=== PATIENT | male | born 2000 | race Caucasian/White ===

== ENCOUNTER 2024-06-26 11:48 | Outpatient (CLI) | payer OTHER, SELFPAY ==
[2024-06-26 12:22] LABS: Basophils % 0.3 % (0.1-2.0); Eosinophils # 0.1 Kmm3 (0.0-0.4); Eosinophils % 1.3 % (0.1-12.0); Hematocrit 50.2 % (42.0-52.0); Hemoglobin 17.1 g/dL (14.1-18.0); Lymphocytes # 2.2 K/mm3 (0.7-4.5); Lymphocytes % 29.7 % (10-50); Mean Corpuscular HGB Conc 34.1 g/dL (31.8-35.4); Mean Corpuscular Hemoglobin 29.3 pg (27.0-31.2); Monocytes # 0.7 K/mm3 (0.1-1.0); Monocytes % 9.5 % (1.7-9.3); Neutrophils # 4.5 K/mm3 (1.8-7.8); Neutrophils % 58.9 % (37.0-80.0); Nucleated Red Blood Cells # 0 10^3/uL; Nucleated Red Blood Cells % 0 %; Platelet Count 334 K/mm3 (142-424); Red Blood Count 5.84 M/mm3 (4.60-6.20); Red Cell Distribution Width 12.5 % (11.5-17.5); Red Cell Distribution Width-SD 38.9 fL; White Blood Count 7.6 K/mm3 (4.8-10.8)
[2024-06-26 12:51] LABS: Albumin Level 4.5 g/dl (3.5-5.0); Chloride 107 mmol/L (98-107); Potassium 4.8 mmoL/L (3.5-5.1); Sodium 141 mmol/L (136-145)
[2024-06-26 12:54] LABS: Alanine Aminotransferase 23 U/L (12-78); Alkaline Phosphatase 69 U/L (38-126); Anion Gap 11.8 mEq/L (5-15); Aspartate Amino Transferase 30 U/L (17-59); Bilirubin,Direct 0.1 mg/dl (0.0-0.4); Bilirubin,Indirect 0.4 mg/dL (0.0-0.9); Bilirubin,Total 0.5 mg/dl (0.2-1.3); Bilirubin,Unconjugated 0.4 mg/dL (0.0-1.1); Blood Urea Nitrogen 14 mg/dl (9-20); Calcium 9.6 mg/dl (8.4-10.2); Carbon Dioxide 27 mmol/L (22.0-30.0); Cholesterol 209 mg/dl (140-200); Estimated Glomerular Filt Rate 117 ml/min (>60); GFR (African American) 141 ML/MIN (>60); Glucose 109 mg/dl (74-100); Magnesium 2.1 mg/dl (1.6-2.3); Total Protein,Serum 7.3 g/dl (6.3-8.2); Triglycerides 208 mg/dl (30-150); VLDL Cholesterol 42 mg/dL (0-40)
[2024-06-26 12:55] LABS: Chol/HDL Ratio 5.6 (1-3.5); HDL Cholesterol 37 mg/dl (40-60)
[2024-06-26 13:06] LABS: Direct LDL Cholesterol 145.75 mg/dL (100-129)
[2024-06-26 13:25] LABS: Thyroid Stimulating Hormone 1.31 uIU/mL (0.465-4.68)
[2024-06-26 14:19] LABS: Free T4 (Free Thyroxine) 1.11 ng/dl (0.78-2.19)
== END 2024-06-26 23:59 | disposition home or self-care (01) ==
LOC: LAB 11:49
PROVIDERS: PCP Physician Assistant Medical; Visit Provider Internal Medicine
DX: R00.2 Palpitations (principal); R55 Syncope and collapse; R06.09 Other forms of dyspnea; R07.89 Other chest pain
CPT/HCPCS: 36415; 80048; 80061; 80076; 83735; 84439; 84443; 85025; 93270

== ENCOUNTER 2024-07-03 21:12 | Observation (INO) | payer OTHER, SELFPAY ==
--- NOTE | 2024-07-03 21:13 | ECG_ITS ---
APPROVED REPORT Exam: Resting ECG HR:82 bpm ECG Measurements Heart Rate 82 AXES LA 180 P 44 QRSd 108 QRS -7 QT 340 T 73 QTc 379 Conclusion SINUS RHYTHM NONSPECIFIC T-WAVE ABNORMALITY Electronically signed by : Chad Kendall, 07/04/2024 01:01:28
[2024-07-03 21:15] VITALS: BP 142/80; PULSE 79; PULSE 82; RESP 19; TEMP 36.7; O2SAT 98; BMI 40.4
--- NOTE | 2024-07-03 21:15 | XR_ITS ---
PROCEDURE INFORMATION: Exam: XR Chest Exam date and time: 07/03/2024 9:16 PM Age: 24 years old Clinical indication: Pain; Chest pressure; Additional info: Chest pain TECHNIQUE: Imaging protocol: Radiologic exam of the chest. Views: 2 views. COMPARISON: No relevant prior studies available. FINDINGS: Lungs: Unremarkable. No consolidation. Pleural spaces: Unremarkable. No pleural effusion. No pneumothorax. Heart/Mediastinum: Unremarkable. No cardiomegaly. Bones/joints: Unremarkable. IMPRESSION: No acute findings.
--- NOTE | 2024-07-03 21:15 | ED_ITS ---
Discharge Plan Disposition Patient Disposition: Admitted Condition: Good Clinical Impressions Clinical Impression: Chest pain Qualifiers: Chest pain type: other chest pain Qualified Code(s): R07.89 - Other chest pain Discharge ED Provider: Chad Kendall HPI <MIKE Sorenson - Last Filed: 07/03/24 22:00> General Chief Complaint: Chest Pain Stated Complaint: chest pain Time Seen by Provider: 07/03/24 21:14 History of Present Illness HPI narrative: Patient presents for evaluation of chest pain. Patient has had 3 weeks of intermittent chest pain. Initially started with some fluttering in his chest and he thought he was going to pass out. He was referred to cardiology and saw him last Wednesday. He had initial workup scheduled including echo and coronary artery CT however that has not yet been accomplished. He has had a Holter monitor put on. Patient reports that today he began having left arm pain and it has been ongoing off and on all day. He denies any trauma or injury. He contacted cardiology who advised him to come to the emergency department. Patient denies chest pain shortness of breath fever chills hemoptysis hematochezia melena nausea vomiting diarrhea. The chest pain has occurred both at rest and with activity. There is no aggravating or relieving factors Related Data Home Medications ?Medication ?Instructions ?Recorded ?Confirmed metoprolol succinate 50 mg 50 mg PO DIRECTED 06/26/24 07/03/24 tablet,extended release 24 hr omeprazole 20 mg capsule,delayed 20 mg PO DAILY 06/26/24 07/03/24 release Allergies Allergy/AdvReac Type Severity Reaction Status Date / Time No Known Allergies Allergy Verified 06/26/24 11:04 [facility] <MIKE Sorenson - Last Filed: 07/03/24 22:00> [facility] Disclaimer: The information contained in this section may have been updated after the patient was seen, as this information can be updated by other users. Medical History (Updated 07/03/24 @ 21:58 by MIKE Sorenson) Abnormal electrocardiogram [ECG] [EKG] HTN (hypertension) Family History (Updated 06/26/24 @ 11:10 by Katherine Sanchez) Grandfather Cancer Father Diabetes Heart attack Hypertension Mother Diabetes Hypertension Grandmother Hypertension Social History (Updated 06/26/24 @ 11:09 by Katherine Garcia Smoking Status: Never smoker alcohol intake: never substance use type: denies use current occupational status: employed Travel in the last 8 weeks?: Inside the [place] Have you lived/traveled outside US in past 30 days?: No Contact w/someone who lives/traveled outside US past 30 days?: No Exposure to someone with infectious disease in past 14 days?: No Do you have a fever (greater than 100.4 F or 38 C)?: No Have you tested positive for COVID-19?: No Exposed to someone with COVID-19 in past 14 days?: No Do you have a sore throat?: No Do you have a cough?: No Do you have any weakness?: No Do you have any diarrhea?: No Are you experiencing any unusual bleeding?: No Do you have any muscle aches/pain?: No Do you have any abdominal pain?: No Are you experiencing loss of taste or smell?: No <MIKE Sorenson - Last Filed: 07/03/24 22:00> ROS Obtained: Yes Systems reviewed as appropriate & no additional complaints except as documented Physical Exam <MIKE Sorenson - Last Filed: 07/03/24 22:00> General General appearance: alert and in no apparent distress Respiratory Respiratory exam: Present normal lung sounds bilaterally Cardiovascular Cardiovascular exam: Present regular rate Neurological Exam Neurological exam: Present alert and oriented X3 HEART Score <MIKE Sorenson - Last Filed: 07/03/24 22:00> HEART Score HEART Score assessment performed?: Yes History (anamnesis): Slightly suspicious ECG: Non-specific disturbance Age: <45 years Risk factors: 3 or more risk factors Troponin: </= normal limit HEART Score: 3 <Chad Kendall MD - Last Filed: 07/04/24 00:57> HEART Score HEART Score: 3 Critical Care <MIKE Sorenson - Last Filed: 07/03/24 22:00> Critical Care Time Critical Care Time: No Medical Decision Making <MIKE Sorenson - Last Filed: 07/03/24 22:00> Medical Records Medical records reviewed: Yes I reviewed the patient's medical records. Randal Inquiry Pt receiving controlled substance: No Vital Signs Vital Signs: 07/03/24 21:15 07/03/24 21:15 07/03/24 22:11 Temperature 98.1 F Temperature Source Oral Pulse Rate 82 Pulse Rate [Right] 79 Respiratory Rate 19 Blood Pressure Blood Pressure [Right Arm] 142/80 H Blood Pressure Mean [Right Arm] 100 Blood Pressure Position [Right Arm] Sitting 02 Sat by Pulse Oximetry 98 Oxygen Delivery Method Room Air Room Air 07/03/24 22:13 Temperature 98.1 F Temperature Source Pulse Rate 80 Pulse Rate [Right] Respiratory Rate 20 Blood Pressure 146/85 H Blood Pressure [Right Arm] Blood Pressure Mean [Right Arm] Blood Pressure Position [Right Arm] 02 Sat by Pulse Oximetry Oxygen Delivery Method Room Air Lab Data Lab results reviewed: Yes I reviewed the patient's lab results. Labs: Lab Results 07/03/24 21:17: WBC 10.4, RBC 5.64, Hgb 16.5, Hct 48.4, MCV 85.8, MCH 29.3, MCHC 34.1, RDW 12.7, Plt Count 341, MPV 8.7, Neut % (Auto) 52.6, Lymph % (Auto) 34.7, [place] % (Auto) 10.8 H, Eos % (Auto) 1.4, Baso % (Auto) 0.2, Neut # (Auto) 5.4, Lymph # (Auto) 3.6, [place] # (Auto) 1.1 H, Eos # (Auto) 0.2, Baso # (Auto) 0.0, PT 10.6, INR 0.94, Sodium 142, Potassium 3.9, Chloride 106, Carbon Dioxide 28, Anion Gap 11.9, BUN 17, Creatinine 1.00, Estimated Creat Clear 251, Estimated GFR 90, Est GFR ( Amer) 109, Glucose 98, Calcium 9.2, Total Bilirubin 0.5, AST 30, ALT 25, Alkaline Phosphatase 71, Troponin I < 0.01, C-Reactive Protein 2.3, NT-Pro-B Natriuret Pep < 20.0, Total Protein 7.5, Albumin 4.5, Globulin 3.0, Albumin/Globulin Ratio 1.5, Procalcitonin 0.049 07/03/24 21:17 07/03/24 21:17 Response Orders (Tests/Meds): ED MEDICATIONS Generic Name Dose Route Start Last Admin Trade Name Freq PRN Reason Stop Dose Admin Acetaminophen 650 mg 07/03/24 22:02 Acetaminophen 325mg Tab PO 08/02/24 22:01 Q4HP PRN Fever or Mild Pain (1-3) Enoxaparin Sodium 40 mg 07/04/24 09:00 Enoxaparin 40mg/0.4ml Syringe SUBCUT 08/03/24 08:59 DAILY J LUIS Ondansetron HCl 4 mg 07/03/24 22:02 Ondansetron 4mg/2ml Vial IV 08/02/24 22:01 Q8HP PRN Nausea Discontinued Medications Generic Name Dose Route Start Last Admin Trade Name Freq PRN Reason Stop Dose Admin Acetaminophen 1,000 mg 07/03/24 21:15 07/03/24 21:22 Acetaminophen 500mg Tab PO 07/03/24 21:16 1,000 mg ONCE ONE Administration Ketorolac Tromethamine 15 mg 07/03/24 21:15 07/03/24 21:21 Ketorolac 30mg/Ml Vial IV 07/03/24 21:16 15 mg ONCE ONE Administration Ondansetron HCl 4 mg 07/03/24 21:15 07/03/24 21:21 Ondansetron 4mg/2ml Vial IV 07/03/24 21:16 4 mg ONCE ONE Administration [facility] Narrative Medical Decision Narrative: In summary patient is a 24-year-old male who presents to the emergency department for evaluation of chest pain and left arm pain intermittently for 3 weeks. Patient is hemodynamically stable upon arrival, afebrile with normal sinus rhythm on bedside monitor. Afebrile. Physical exam is remarkable for no reproducible chest pain or arm pain on palpation. Patient has full range of motion of his upper extremity. Presents clinical bilateral to the bases that adventitious sounds. Cardiovascular S1-S2 regular rate rhythm without murmurs gallops rubs or thrills. Abdomen soft nontender no rebound or guarding or rigidity.. Differential diagnosis includes ACS versus PE versus noncardiac chest pain versus unstable angina versus arthralgia etc. Initial workup will be conducted with hematologic labs twelve-lead EKG plain film chest x-ray. Initial interventions include Tylenol and Toradol Zofran. Initial workup interpreted by me and his hematologic labs are nonactionable including a undetectable troponin and BNP, mild for interpretation of his plain film chest x-ray shows no acute processes. I then had an interactive discussion with Dr. Larson of cardiology about patient presentation NIELSEN and management and he would like to admit the patient for further inpatient workup given his unstable symptoms. Thus I had indirect discussion with hospital medicine about patient presentation NIELSEN and patient management and he will be admitted for further evaluation and care. <Chad Kendall MD - Last Filed: 07/04/24 00:57> Vital Signs Vital Signs: 07/03/24 21:15 07/03/24 21:15 07/03/24 22:11 Temperature 98.1 F Temperature Source Oral Pulse Rate 82 Pulse Rate [Right] 79 Respiratory Rate 19 Blood Pressure Blood Pressure [Right Arm] 142/80 H Blood Pressure Mean [Right Arm] 100 Blood Pressure Position [Right Arm] Sitting 02 Sat by Pulse Oximetry 98 Oxygen Delivery Method Room Air Room Air 07/03/24 22:13 Temperature 98.1 F Temperature Source Pulse Rate 80 Pulse Rate [Right] Respiratory Rate 20 Blood Pressure 146/85 H Blood Pressure [Right Arm] Blood Pressure Mean [Right Arm] Blood Pressure Position [Right Arm] 02 Sat by Pulse Oximetry Oxygen Delivery Method Room Air Lab Data Labs: Lab Results 07/03/24 21:17: WBC 10.4, RBC 5.64, Hgb 16.5, Hct 48.4, MCV 85.8, MCH 29.3, MCHC 34.1, RDW 12.7, Plt Count 341, MPV 8.7, Neut % (Auto) 52.6, Lymph % (Auto) 34.7, [place] % (Auto) 10.8 H, Eos % (Auto) 1.4, Baso % (Auto) 0.2, Neut # (Auto) 5.4, Lymph # (Auto) 3.6, [place] # (Auto) 1.1 H, Eos # (Auto) 0.2, Baso # (Auto) 0.0, PT 10.6, INR 0.94, Sodium 142, Potassium 3.9, Chloride 106, Carbon Dioxide 28, Anion Gap 11.9, BUN 17, Creatinine 1.00, Estimated Creat Clear 251, Estimated GFR 90, Est GFR ( Amer) 109, Glucose 98, Calcium 9.2, Total Bilirubin 0.5, AST 30, ALT 25, Alkaline Phosphatase 71, Troponin I < 0.01, C-Reactive Protein 2.3, NT-Pro-B Natriuret Pep < 20.0, Total Protein 7.5, Albumin 4.5, Globulin 3.0, Albumin/Globulin Ratio 1.5, Procalcitonin 0.049 Response Orders (Tests/Meds): ED MEDICATIONS Generic Name Dose Route Start Last Admin Trade Name Freq PRN Reason Stop Dose Admin Acetaminophen 650 mg 07/03/24 22:02 Acetaminophen 325mg Tab PO 08/02/24 22:01 Q4HP PRN Fever or Mild Pain (1-3) Enoxaparin Sodium 40 mg 07/04/24 09:00 Enoxaparin 40mg/0.4ml Syringe SUBCUT 08/03/24 08:59 DAILY J LUIS Ondansetron HCl 4 mg 07/03/24 22:02 Ondansetron 4mg/2ml Vial IV 08/02/24 22:01 Q8HP PRN Nausea Discontinued Medications Generic Name Dose Route Start Last Admin Trade Name Freq PRN Reason Stop Dose Admin Acetaminophen 1,000 mg 07/03/24 21:15 07/03/24 21:22 Acetaminophen 500mg Tab PO 07/03/24 21:16 1,000 mg ONCE ONE Administration Ketorolac Tromethamine 15 mg 07/03/24 21:15 07/03/24 21:21 Ketorolac 30mg/Ml Vial IV 07/03/24 21:16 15 mg ONCE ONE Administration Ondansetron HCl 4 mg 07/03/24 21:15 07/03/24 21:21 Ondansetron 4mg/2ml Vial IV 07/03/24 21:16 4 mg ONCE ONE Administration ECG Data Tracing #1: Attestation: I reviewed this ECG and interpreted as documented below: ECG Narrative: Normal sinus rhythm at a rate of 82, QTc 379, normal axis, no STEMI MDM Narrative Medical Decision Narrative: In summary patient is a 24-year-old male who presents to the emergency department for evaluation of chest pain and left arm pain intermittently for 3 weeks. Patient is hemodynamically stable upon arrival, afebrile with normal sinus rhythm on bedside monitor. Afebrile. Physical exam is remarkable for no reproducible chest pain or arm pain on palpation. Patient has full range of motion of his upper extremity. Presents clinical bilateral to the bases that adventitious sounds. Cardiovascular S1-S2 regular rate rhythm without murmurs gallops rubs or thrills. Abdomen soft nontender no rebound or guarding or rigidity.. Differential diagnosis includes ACS versus PE versus noncardiac chest pain versus unstable angina versus arthralgia etc. Initial workup will be conducted with hematologic labs twelve-lead EKG plain film chest x-ray. Initial interventions include Tylenol and Toradol Zofran. Initial workup interpreted by me and his hematologic labs are nonactionable including a undetectable troponin and BNP, mild for interpretation of his plain film chest x-ray shows no acute processes. I then had an interactive discussion with Dr. Larson of cardiology about patient presentation NIELSEN and management and he would like to admit the patient for further inpatient workup given his unstable symptoms. Thus I had indirect discussion with hospital medicine about patient presentation NIELSEN and patient management and he will be admitted for further evaluation and care. HECTOR attestation I was consulted by the HECTOR, and we discussed the complexity of problems being addressed. I approved the treatment and management plan for this patient's care in the emergency department, thus performing a substantial portion of the medical decision making. I was present at bedside on patient arrival and independently interpret his EKG as described above. Chad Kendall MD
[2024-07-03] MEDS: ONDANSETRON 4MG/2ML VIAL 4 MG IV (21:21)
[2024-07-03] MEDS: KETOROLAC 30MG/ML VIAL 15 MG IV (21:21)
[2024-07-03] MEDS: ACETAMINOPHEN 500MG TAB 1000 MG PO (21:22)
[2024-07-03 21:34] LABS: Alanine Aminotransferase 25 U/L (12-78); Albumin Level 4.5 g/dl (3.5-5.0); Albumin/Globulin Ratio 1.5 (1.1-1.8); Alkaline Phosphatase 71 U/L (38-126); Anion Gap 11.9 mEq/L (5-15); Aspartate Amino Transferase 30 U/L (17-59); Bilirubin,Total 0.5 mg/dl (0.2-1.3); Blood Urea Nitrogen 17 mg/dl (9-20); Calcium 9.2 mg/dl (8.4-10.2); Carbon Dioxide 28 mmol/L (22.0-30.0); Chloride 106 mmol/L (98-107); Creatinine Clearance Estimated 251 mL/min (50-200); Estimated Glomerular Filt Rate 90 ml/min (>60); GFR (African American) 109 ML/MIN (>60); Glucose 98 mg/dl (74-100); Potassium 3.9 mmoL/L (3.5-5.1); Sodium 142 mmol/L (136-145); Total Protein,Serum 7.5 g/dl (6.3-8.2)
[2024-07-03 21:39] LABS: C-Reactive Protein 2.3 mg/L (0-4)
[2024-07-03 21:40] LABS: Basophils % 0.2 % (0.1-2.0); Eosinophils # 0.2 Kmm3 (0.0-0.4); Eosinophils % 1.4 % (0.1-12.0); Hematocrit 48.4 % (42.0-52.0); Hemoglobin 16.5 g/dL (14.1-18.0); Lymphocytes # 3.6 K/mm3 (0.7-4.5); Lymphocytes % 34.7 % (10-50); Mean Corpuscular HGB Conc 34.1 g/dL (31.8-35.4); Mean Corpuscular Hemoglobin 29.3 pg (27.0-31.2); Mean Corpuscular Volume 85.8 fl (80-94); Mean Platelet Volume 8.7 fl (7.4-10.4); Monocytes # 1.1 K/mm3 (0.1-1.0); Monocytes % 10.8 % (1.7-9.3); Neutrophils # 5.4 K/mm3 (1.8-7.8); Neutrophils % 52.6 % (37.0-80.0); Nucleated Red Blood Cells # 0 10^3/uL; Nucleated Red Blood Cells % 0 %; Platelet Count 341 K/mm3 (142-424); Red Blood Count 5.64 M/mm3 (4.60-6.20); Red Cell Distribution Width 12.7 % (11.5-17.5); Red Cell Distribution Width-SD 39.5 fL; White Blood Count 10.4 K/mm3 (4.8-10.8)
[2024-07-03 21:47] LABS: INR 0.94 (0.9-1.1); Prothrombin Time 10.6 seconds (10.1-12.5)
[2024-07-03 21:48] LABS: NT Pro Brain Natriuretic Pep. < 20.0 pg/mL (0-125); Troponin I < 0.01 ng/ml (0.00-0.034)
[2024-07-03 21:52] LABS: Procalcitonin 0.049 ng/mL (0.0-2.0)
--- NOTE | 2024-07-03 22:09 | P.HP_ITS ---
History of Present Illness *Admission Date: 07/04/24 *Reason for visit:: Chest pain *History of present illness: Samuel Solano is a 24-year-old male with a medical history significant for hypertension, hyperlipidemia, GERD, class III obesity who presents with intermittent chest pains. He states these episodes began about 3 weeks ago, describes them as midsternal pressure. He states he has not felt radiation in the past, but now has had an episode where it has radiated to left arm. He also states that he felt fluttering in his right neck during the initial episode 3 weeks ago. Denies associated shortness of breath, palpitations, dizziness. States its both with exertion and at rest, denies it is worse after eating. Recently evaluated by Dr. Larson in the clinic, recommended CCTA, ECHO, and sleep study which are being scheduled. He was also placed on a 2-week event monitor. He was also started on omeprazole 3 weeks ago by PCP, has been adherent daily to it on empty stomach and states it has not improved symptoms. Chest pain resolved before arrival to the ED. Patient drove himself. Workup in the ED relatively unremarkable, troponins and EKG unremarkable. LDL 145. D- dimer 0.67. ED provider reached out to Dr. Larson who recommended admission for further evaluation and management. Case discussed with ED provider and decision was made to admit patient for chest pain workup. [facility] Disclaimer: The information contained in this section may have been updated after the patient was seen, as this information can be updated by other users. Medical History (Updated 07/04/24 @ 02:14 by Kaleb Clark MD) Abnormal electrocardiogram [ECG] [EKG] HTN (hypertension) Family History (Updated 06/26/24 @ 11:10 by Katherine Sanchez) Grandfather Cancer Father Diabetes Heart attack Hypertension Mother Diabetes Hypertension Grandmother Hypertension Social History (Updated 06/26/24 @ 11:09 by Katherine Sanchez) Smoking Status: Never smoker alcohol intake: never substance use type: denies use current occupational status: employed Travel in the last 8 weeks?: Inside the [place] Have you lived/traveled outside US in past 30 days?: No Contact w/someone who lives/traveled outside US past 30 days?: No Exposure to someone with infectious disease in past 14 days?: No Do you have a fever (greater than 100.4 F or 38 C)?: No Have you tested positive for COVID-19?: No Exposed to someone with COVID-19 in past 14 days?: No Do you have a sore throat?: No Do you have a cough?: No Do you have any weakness?: No Do you have any diarrhea?: No Are you experiencing any unusual bleeding?: No Do you have any muscle aches/pain?: No Do you have any abdominal pain?: No Are you experiencing loss of taste or smell?: No Meds Home Medications and Allergies Home Medications ?Medication ?Instructions ?Recorded ?Confirmed ?Type metoprolol succinate 50 mg 50 mg PO DIRECTED 06/26/24 07/03/24 History tablet,extended release 24 hr omeprazole 20 mg capsule,delayed 20 mg PO DAILY 06/26/24 07/03/24 History release New Prescriptions to Start Prescriptions: Allergies Allergy/AdvReac Type Severity Reaction Status Date / Time No Known Allergies Allergy Verified 06/26/24 11:04 Exam Data for Last 24 hours Vital signs and Labs for Last 24 Hours: Temp Pulse Resp BP Pulse Ox O2 Del Method 98.1 F 79 19 142/80 H 98 Room Air 07/03/24 21:15 07/03/24 21:15 07/03/24 21:15 07/03/24 21:15 07/03/24 21:15 07/03/24 21:15 Laboratory Results - last 24 hr 07/03/24 21:17: WBC 10.4, RBC 5.64, Hgb 16.5, Hct 48.4, MCV 85.8, MCH 29.3, MCHC 34.1, RDW 12.7, Plt Count 341, MPV 8.7, Neut % (Auto) 52.6, Lymph % (Auto) 34.7, [place] % (Auto) 10.8 H, Eos % (Auto) 1.4, Baso % (Auto) 0.2, Neut # (Auto) 5.4, Lymph # (Auto) 3.6, [place] # (Auto) 1.1 H, Eos # (Auto) 0.2, Baso # (Auto) 0.0, PT 10.6, INR 0.94, Sodium 142, Potassium 3.9, Chloride 106, Carbon Dioxide 28, Anion Gap 11.9, BUN 17, Creatinine 1.00, Estimated Creat Clear 251, Estimated GFR 90, Est GFR ( Amer) 109, Glucose 98, Calcium 9.2, Total Bilirubin 0.5, AST 30, ALT 25, Alkaline Phosphatase 71, Troponin I < 0.01, C- Reactive Protein 2.3, NT-Pro-B Natriuret Pep < 20.0, Total Protein 7.5, Albumin 4.5, Globulin 3.0, Albumin/Globulin Ratio 1.5, Procalcitonin 0.049 I & O for Last 24 hours: Intake & Output 06/30/24 07/01/24 07/02/24 07/03/24 23:59 23:59 23:59 23:59 Weight 158.757 kg Constitutional Constitutional: no acute distress and obese *Routine HEENT Exam Head: Present normocephalic Eye: Present EOMI and PERRL ENT: Present mucous membranes moist *Routine Neck Exam Neck: Present supple; Absent lymphadenopathy *Routine Respiratory Exam Respiratory: Present CTA bilaterally *Routine Cardiovascular Exam Cardiovascular: Present RRR *Routine Abdominal Exam Abdominal: Present soft and normoactive bowel sounds; Absent tenderness *Routine Rectal Exam Rectal:: deferred *Routine Genitalia Exam Genitalia:: deferred *Routine Extremities Exam Extremities: Absent cyanosis, clubbing or edema *Routine Skin Exam Skin: Present warm; Absent rash *Routine Neurological Exam Neurological: Present alert and oriented X3 Assessment and Plan *Assessment and plan (1) Chest pain: Status: Acute Qualifiers: Chest pain type: other chest pain Qualified Code(s): R07.89 - Other chest pain Category: Medical Code(s): R07.9 - Chest pain, unspecified (2) GERD (gastroesophageal reflux disease): Status: Acute Category: Medical Code(s): K21.9 - Gastro-esophageal reflux disease without esophagitis (3) Hyperlipidemia: Status: Acute Category: Medical Code(s): E78.5 - Hyperlipidemia, unspecified (4) HTN (hypertension): Status: Acute Category: Medical Code(s): I10 - Essential (primary) hypertension (5) Obesity: Status: Acute Category: Medical Code(s): E66.9 - Obesity, unspecified Plan Samuel Solano is a 24-year-old male with a medical history significant for hypertension, hyperlipidemia, GERD, class III obesity who presents with intermittent chest pains. He states these episodes began about 3 weeks ago, describes them as midsternal pressure. He states he has not felt radiation in the past, but now has had an episode where it has radiated to left arm. He also states that he felt fluttering in his right neck during the initial episode 3 weeks ago. Denies associated shortness of breath, palpitations, dizziness. States its both with exertion and at rest, denies it is worse after eating. Recently evaluated by Dr. Larson in the clinic, recommended CCTA, ECHO, and sleep study which are being scheduled. He was also placed on a 2-week event monitor. He was also started on omeprazole 3 weeks ago by PCP, has been adherent daily to it on empty stomach and states it has not improved symptoms. Chest pain resolved before arrival to the ED. Patient drove himself. Workup in the ED relatively unremarkable, troponins and EKG unremarkable. LDL 145. D- dimer 0.67. ED provider reached out to Dr. Larson who recommended admission for further evaluation and management. Case discussed with ED provider and decision was made to admit patient for chest pain workup. #Chest pain #Hyperlipidemia #Hypertension #GERD ? Presents with 3 weeks of intermittent midsternal chest pain, now radiating to left arm. Not reproducible to palpation, not worse with eating. ? Troponins, EKG unremarkable. D-dimer elevated, but we will forego CTA chest for CCTA given low suspicion for pulmonary embolism. On room air vital signs stable. ? Patient does have risk factors for coronary disease, LDL 145 with a history of hypertension and obesity. Non-smoker or drinker. ? CXR without acute findings. ? Follow-up CCTA in the morning. ? Follow-up ECHO. ? Follow-up A1c. TSH, CRP normal. ? Follow-up respiratory panel for possible myopericarditis. ? Follow-up UDS. Zofran has been given, UDS can be false positive for barbiturates. ? Cardiology consulted, pending further recommendations. ? Continue home metoprolol succinate 50 mg, PPI. ? Statin not indicated per USPSTF guidelines but can be considered. #Class III obesity ? Complicates all aspects of care. Full code DVT prophylaxis: Lovenox 40 mg twice daily
[2024-07-03 22:13] VITALS: BP 146/85; PULSE 80; RESP 20; TEMP 36.7; O2SAT 95
[2024-07-03 22:19] LABS: D-Dimer 0.67 ug/mL (0.0-0.5)
[2024-07-03 22:30] LABS: HIV Combo NEGATIVE (Negative)
[2024-07-03 22:38] LABS: Hepatitis C Ab Qual. W/ RFX NEGATIVE (Negative)
[2024-07-03 22:52] VITALS: BP 133/78; PULSE 96; RESP 16; TEMP 36.8; O2SAT 97; BMI 40.7
[2024-07-04] VITALS: BP 140/83; PULSE 70; PULSE 77; RESP 16; TEMP 36.7; O2SAT 97
--- NOTE | 2024-07-04 01:06 | CA_ITS ---
APPROVED REPORT EXAM: Comprehensive 2D, Doppler, and color-flow Echocardiogram Head Refrigeration Engineer: Alexandra Purvis, LAURIE, RVS Ht: 6 ft 5 in Wt: 351lbs BSA: 2.84 BP: 142/80 mmHg Indications: CP, Palpitations, GERD, HTN, Obesity 2D Dimensions IVSd 1.18 cm M: 0.6-1.2 LVEF (Visual) 58.90 % PWd 1.45 cm M: 0.6 - 1.2 LA Volume 55.10 mL LVDd 5.25 cm M: 4.2 - 5.9 LA Volume Index [id number] mL/m2 (M/F) 16-34 LVDs 3.70 cm M: 2.5 - 4.0 Left Atrium 3.39 cm M: 3.0 - 4.0 M-Mode Dimensions RVDd 2.83 cm (0.9-2.6) LA Diam 3.91 cm (1.9-4.0) LVDd 6.39 cm (3.5-5.7) LVDs 3.84 cm (3.5-5.7) IVSd 1.15 cm (0.6-1.1) PWd 1.36 cm (0.6-1.1) EF (Teich) 69.40% EPSs 0.39 cm FS 39.90% EDV (Teich) 207.80 mL TAPSE 1.60 (<1.7) ESV (Teich) 63.50 mL LV Diastology E Decel Time 153 (160-240 msec) E/A Ratio 1.22 MED A' 9.70 cm/s LAT A' 4.70 cm/s Aortic Valve AoV Peak Artemio. 151.0 (50-130 cm/s) AO Peak GR. 9.20 mmHg AO Mean GR. 4.50 (<5 mmHg) AO VTI 28.5 (18-25 cm) LAWRENCE (VTI) 2.56 (2.5-4.5 cm2) Mitral Valve MV A Velocity 77.0 (40-130 cm/s) E/A Ratio 1.22 MV Mean Gr. 2.00 (<2mmHg) Pulmonary Valve PV Peak Velocity 108.0 (50-150 cm/s) Left Ventricle The left ventricle is normal size. The left ventricular systolic function is normal. The left ventricular ejection fraction is within the normal range. There is normal left ventricular wall thickness. There is normal LV segmental wall motion. The left ventricular diastolic function is normal. LVEF is 55%. Right Ventricle The right ventricle is normal size. The right ventricular systolic function is normal. Atria The left atrium size is normal. The right atrium size is normal. There is no Doppler evidence of interatrial shunt. Aortic Valve The aortic valve opens well. There is no aortic valvular stenosis. No aortic regurgitation is present. Mitral Valve The mitral valve is normal in structure. No evidence of mitral valve stenosis. Trace mitral regurgitation. Tricuspid Valve Tricuspid valve is grossly normal in structure and function. Trace tricuspid regurgitation. There is insufficient TR jet to estimate RVSP. Pulmonic Valve The pulmonary valve is normal in structure. Trace pulmonic regurgitation. Great Vessels The aortic root is normal in size. IVC is normal in size and collapses >50% with inspiration. Pericardium There is no pericardial effusion. Other Information Study Quality: Adequate Conclusion Normal biventricular systolic function. No significant valvular stenosis or regurgitation. Electronically signed by : Monet Moulton MD 07/04/2024 11:36:26
[2024-07-04 01:36] LABS: Troponin I < 0.01 ng/ml (0.00-0.034)
[2024-07-04 02:59] LABS: Adenovirus,PCR Not Detected (NotDetected); Bordetella Pertussis Not Detected (NotDetected); Chlamydophila Pneumoniae, PCR Not Detected (NotDetected); Coronavirus 19, PCR Not Detected (NotDetected); Coronavirus 229E Not Detected (NotDetected); Coronavirus NL63 Not Detected (NotDetected); Coronavirus OC43 Not Detected (NotDetected); Coronovirus HKU1,PCR Not Detected (NotDetected); Human Metapneumovirus Not Detected (NotDetected); Influenza A, PCR Not Detected (NotDetected); Influenza AH1, 2009 Not Detected (NotDetected); Influenza AH1, PCR Not Detected (NotDetected); Influenza AH3,PCR Not Detected (NotDetected); Influenza B, PCR Not Detected (NotDetected); Microscopic, Urine URINE MICROSCOPIC (MICROSCOPIC); Mycoplasma Pneumoniae, PCR Not Detected (NotDetected); Parainfluenza 1, PCR Not Detected (NotDetected); Parainfluenza 2, PCR Not Detected (NotDetected); Parainfluenza 3, PCR Not Detected (NotDetected); Parainfluenza 4, PCR Not Detected (NotDetected); Respiratory Syncytial Virus Not Detected (NotDetected); Rhinovirus/Enterovirus Not Detected (NotDetected)
[2024-07-04 03:14] LABS: Appearance,Urine CLEAR (Clear); Bilirubin,Urine Negative (Negative); Blood, Urine Negative (Negative); Color,Urine YELLOW (Yellow); Glucose,Urine (UA) Negative (Negative); Ketones,Urine TRACE (Negative); Leukocyte Esterase,Urine Negative (Negative); Nitrate,Urine Negative (Negative); Protein,Urine Negative (Negative); Specific Gravity, Urine >= 1.030 (1.005-1.030); Urobilinogen,Urine 0.2 EU/dl (0.2)
[2024-07-04 03:28] LABS: Bacteria,Urine 1+ /lpf; Mucus,Urine 1+ /lpf; Squamous Epithelial Cell,Urine Occasional #/hpf (0-5); WBC,Urine Occasional #/hpf (0-3)
[2024-07-04 03:29] LABS: Barbiturates Screen,Urine Negative ng/ml (<200)
[2024-07-04 03:30] LABS: Amphetamine/Metha Screen,Urine Negative ng/ml (<1000); Benzodiazepines Screen,Urine Negative ng/ml (<200)
[2024-07-04 03:31] LABS: Cocaine Screen,Urine Negative ng/ml (<300)
[2024-07-04 03:32] LABS: Cannabinoid Screen,Urine Negative ng/ml (<50); Methadone Screen,Urine Negative ng/ml (<300)
[2024-07-04 03:33] LABS: Opiate Screen,Urine Negative ng/ml (<300); Phencyclidine Screen,Urine Negative ng/ml (<25)
[2024-07-04 03:39] LABS: Troponin I < 0.01 ng/ml (0.00-0.034)
[2024-07-04 04:00] VITALS: BP 144/87; PULSE 60; PULSE 67; RESP 16; TEMP 36.5; O2SAT 99; BMI 39.8
--- NOTE | 2024-07-04 04:40 | PC.NURSE ---
Pt AOx4. Denies pain or any additional needs. Family at bedside. Urine and respiratory panel sent to lab. Respirations even and unlabored. Bed is low, locked, and call light is in reach.
--- NOTE | 2024-07-04 06:00 | CT_ITS ---
APPROVED REPORT Care Analyst: CLINICAL INDICATION Chest Pain TECHNIQUE Image Acquisition: A 128 slice MDCT scanner ([place] View) was used for data acquisition. A noncontrast coronary calcium scan was performed. A CT attenuation threshold of 130 Hounsfield units (HU) was used for the detection of calcium in contiguous voxels of 1 sq mm in area to be counted as individual lesions. Bolus tracking in the ascending aorta with a threshold of 180 HU was performed. Immediately afterwards, ECG synchronized cardiac CT was then performed from the cardiac base to apex using retrospective gating with ECG tube current modulation. A total of 85 mL of Isovue 370 mg/mL contrast medium was administered at 5 mL/sec followed by a saline flush using a biphasic injection protocol. A tube voltage of 120 KVp was used. The patient received the following medications prior to the cardiac CT. 100 mg of oral metoprolol 25 mg of intravenous metoprolol 15 mg of oral ivabradine 0.8 mg of sublingual nitroglycerin The average heart rate at the time of acquisition was 66 bpm and regular. Image Reconstruction Transaxial images were reconstructed at 0.67 mm slide thickness. Data was reviewed interactively on an advanced workstation capable of 2 and 3-dimensional displays in all conventional reconstruction formats, including multiplanar reformations, maximum intensity projections, curved multiplanar reformations, and volume rendered reconstructions. When applicable, selected routine images describing the relevant coronary anatomy and pathology were saved and sent to PACS. Complications None Technical Quality Overall image quality was fair. Coronary artery opacification was adequate. Total DLP (Dose-Length Product) is 1371.2 mGy-cm. The reported value represents the total of one or more individual components during the CT acquisition of this date and at this time, and as such, the same value may appear in more than one CT report depending on the interpreting/reporting physicians. COMPARISON None FINDINGS CT Coronary Calcium Scoring LMA (Left Main Artery) = 0 LAD (Left Anterior Descending) = 0 LCX (Left Coronary Circumflex) = 0 RCA (Right Coronary Artery) = 0 Total Calcium Score = 0 using the AJ-130 method. The interpretation of the calcium heart score is based on the following continuum*: 0 = no calcified plaque detected (risk of coronary artery disease is very low ??? less than 5%) 1-10 = calcium detected in extremely minimal levels (risk of coronary diseases is still low ??? less than 10%) 11-100 = mild levels of plaque detected with certainty (mild or minimal narrowing of heart arteries is likely) 101-400 = definite,at least moderate levels of plaque detected (relatively high risk of a heart attack within 3-5 years) >401-999 = extensive levels of plaque detected (high risk of heart attack, high levels of vascular disease are present, high likelihood of at least one significant coronary narrowing) *The calcium heart score quantifies the burden of coronary calcification/plaque in the coronary arteries. The calcium heart score is not able to evaluate the presence or burden of non-calcified (i.e. soft) plaque. There is no identifiable calcification in the aortic valve, mitral annulus or mitral valve, pericardium, or myocardium. Coronary CT Angiography The coronary arterial system is right dominant. Quantitative Stenosis Grading: Left Main (LM): The left main originates normally from the left sinus of Valsalva. The LM bifurcates into the left anterior descending artery and left circumflex artery. The LM is patent with no evidence of atherosclerosis. Left Anterior Descending (LAD) and Diagonal Branches: The LAD gives off 2 diagonal branch(es). The LAD and its branches are patent with no evidence of atherosclerosis. There is no evidence of LAD-myocardial bridge. Left Circumflex (LCX) and Obtuse Marginals (OM): The LCX gives off 1 Obtuse Marginal (OM) branch(es). The LCX and its branches are patent with no evidence of atherosclerosis. Right Coronary Artery (RCA): The RCA originates normally from the right sinus of Valsalva. The RCA gives off a posterior descending artery (PDA) and posterolateral (PL) branches. The RCA and its branches are patent with no evidence of atherosclerosis. Non-Coronary Cardiac Findings: Analysis of the left ventricular (LV) structure and function was performed after 3-D reconstruction of the LV from axial images, with user-corrected automatic contouring for assessment of LV volumes and user-defined reconstruction from oblique planes for measurement of 3-D cardiac structure and function. -The left ventricle systolic function is normal. -There is no left atrial appendage filling defect. Two right pulmonary veins and two left pulmonary veins drain normally into the left atrium. -No pericardial thickening or calcification. -Central and branch pulmonary arteries in the [id number] are unremarkable. -Thoracic aorta within the visualized thoracic aortic-branches in the [id number] is unremarkable. Extracardiac Structures No significant extra-cardiac findings. Note, however, that this study is focused on the cardiac findings. IMPRESSION -Absence of coronary calcification with an Agatston score = 0 using the AJ-130 method. -No evidence of significant flow-limiting atherosclerosis of the coronary arteries. -No evidence of coronary anomalies or myocardial bridges. -CAD-RADS 0. Management recommendations per ACC/AHA guidelines*, as clinically appropriate. *Recommendations: CAD RADS 0: Reassurance. Consider non-atherosclerotic causes of chest pain. CAD RADS 1: Consider non-atherosclerotic causes of chest pain. Consider preventive therapy and risk factor modification. CAD RADS 2: Consider non-atherosclerotic causes of chest pain. Consider preventive therapy and risk factor modification, particularly for patients with nonobstructive plaque in multiple segments. CAD RADS 3: Consider further functional testing. Consider symptom-guided anti-ischemic and preventive pharmacotherapy as well as risk factor modification per published guideline statements. CAD RADS 4A: Consider further functional testing or invasive coronary angiography with revascularization per published guideline statements. Consider symptom-guided anti-ischemic and preventive pharmacotherapy as well as risk factor modification per published guideline statements. CAD RADS 4B: Invasive coronary angiography recommended with revascularization per published guideline statements. Consider symptom-guided anti-ischemic and preventive pharmacotherapy as well as risk factor modification per published guideline statements. CAD RADS 5: Consider invasive angiography and/or viability assessment with revascularization per published guideline statements. Consider symptom-guided anti-ischemic and preventive pharmacotherapy as well as risk factor modification per published guideline statements. CRITICAL RESULT None COMMUNICATION Per this written report The coronary and cardiac findings of this CCTA were reviewed, reported, and signed by Jorge Moulton MD (Chemical Recovery Operator) Conclusion Electronically signed by : Monet Moulton MD 07/04/2024 13:49:42
[2024-07-04 06:32] LABS: Basophils % 0.1 % (0.1-2.0); Eosinophils # 0.2 Kmm3 (0.0-0.4); Hematocrit 47.6 % (42.0-52.0); Lymphocytes % 39.8 % (10-50); Mean Corpuscular HGB Conc 33.6 g/dL (31.8-35.4); Mean Corpuscular Hemoglobin 29.3 pg (27.0-31.2); Mean Platelet Volume 8.7 fl (7.4-10.4); Monocytes # 0.8 K/mm3 (0.1-1.0); Monocytes % 10.6 % (1.7-9.3); Neutrophils # 3.5 K/mm3 (1.8-7.8); Neutrophils % 47.4 % (37.0-80.0); Nucleated Red Blood Cells # 0 10^3/uL; Nucleated Red Blood Cells % 0 %; Platelet Count 283 K/mm3 (142-424); Red Blood Count 5.47 M/mm3 (4.60-6.20); Red Cell Distribution Width 12.7 % (11.5-17.5); Red Cell Distribution Width-SD 40.4 fL; White Blood Count 7.4 K/mm3 (4.8-10.8)
[2024-07-04 06:36] LABS: Albumin Level 4.3 g/dl (3.5-5.0); Chloride 109 mmol/L (98-107); Potassium 4.1 mmoL/L (3.5-5.1); Sodium 142 mmol/L (136-145)
[2024-07-04 06:39] LABS: Alanine Aminotransferase 23 U/L (12-78); Albumin/Globulin Ratio 1.7 (1.1-1.8); Alkaline Phosphatase 68 U/L (38-126); Anion Gap 12.1 mEq/L (5-15); Aspartate Amino Transferase 29 U/L (17-59); Bilirubin,Total 0.6 mg/dl (0.2-1.3); Blood Urea Nitrogen 19 mg/dl (9-20); Calcium 9.6 mg/dl (8.4-10.2); Carbon Dioxide 25 mmol/L (22.0-30.0); Creatinine Clearance Estimated 275 mL/min (50-200); Estimated Glomerular Filt Rate 102 ml/min (>60); GFR (African American) 123 ML/MIN (>60); Globulin 2.6 g/dL (1.3-3.2); Glucose 106 mg/dl (74-100); Magnesium 2.3 mg/dl (1.6-2.3); Total Protein,Serum 6.9 g/dl (6.3-8.2)
--- NOTE | 2024-07-04 07:45 | EXP.DC.SUM ---
General Admission date:: 07/03/24 Discharge date: 07/04/24 HPI HPI HPI: Samuel Solano is a 24-year-old male with a medical history significant for hypertension, hyperlipidemia, GERD, class III obesity who presents with intermittent chest pains. He states these episodes began about 3 weeks ago, describes them as midsternal pressure. He states he has not felt radiation in the past, but now has had an episode where it has radiated to left arm. He also states that he felt fluttering in his right neck during the initial episode 3 weeks ago. Denies associated shortness of breath, palpitations, dizziness. States its both with exertion and at rest, denies it is worse after eating. Recently evaluated by Dr. Larson in the clinic, recommended CCTA, ECHO, and sleep study which are being scheduled. He was also placed on a 2-week event monitor. He was also started on omeprazole 3 weeks ago by PCP, has been adherent daily to it on empty stomach and states it has not improved symptoms. Chest pain resolved before arrival to the ED. Patient drove himself. Workup in the ED relatively unremarkable, troponins and EKG unremarkable. LDL 145. D-dimer 0.67. ED provider reached out to Dr. Larson who recommended admission for further evaluation and management. Case discussed with ED provider and decision was made to admit patient for chest pain workup. Hospital Course Hospital Course Hospital Course: Samuel Solano is a 24-year-old male with a medical history significant for hypertension, hyperlipidemia, GERD, class III obesity who presents with intermittent chest pains. He states these episodes began about 3 weeks ago, describes them as midsternal pressure. He states he has not felt radiation in the past, but now has had an episode where it has radiated to left arm. He also states that he felt fluttering in his right neck during the initial episode 3 weeks ago. Denies associated shortness of breath, palpitations, dizziness. States its both with exertion and at rest, denies it is worse after eating. Recently evaluated by Dr. Larson in the clinic, recommended CCTA, ECHO, and sleep study which are being scheduled. He was also placed on a 2-week event monitor. He was also started on omeprazole 3 weeks ago by PCP, has been adherent daily to it on empty stomach and states it has not improved symptoms. Chest pain resolved before arrival to the ED. Patient drove himself. Workup in the ED relatively unremarkable, troponins and EKG unremarkable. LDL 145. D-dimer 0.67. ED provider reached out to Dr. Larson who recommended admission for further evaluation and management. Case discussed with ED provider and decision was made to admit patient for chest pain workup. Stable during admission, Evaluated by cardiology with normal CCTA and echo. DC home with close out patient follow-up to evaluate for non-cardiac etiologies of chest pain. Problems addressed as follows: #Chest pain #Hyperlipidemia #Hypertension #GERD ? Presents with 3 weeks of intermittent midsternal chest pain, now radiating to left arm. Not reproducible to palpation, not worse with eating. Troponins, EKG unremarkable. D-dimer elevated, but deferred CTA chest for CCTA given low suspicion for pulmonary embolism. On room air with vital signs stable. Patient does have risk factors for coronary disease, LDL 145 with a history of hypertension and obesity. Non-smoker or drinker. CXR without acute findings. Cardiology evaluated in the morning. CCTA and echo obtained with normal findings. TSH 1.3. Respiratory panel negative. Feeling better by morning. Continue Omeprazole for GI component. Increase to twice daily for 1 week. Decrease thereafter. LDL goal less than 100, LDL is 145-start Lipitor 40 mg p.o. daily. Hypertension present-continue metoprolol 50 mg p.o. daily and irbesartan 75 mg p.o. daily for hypertension. #Class II obesity: Complicates all aspects of care. Total time spent on discharge 37 minutes in counseling, documentation, chart review, and direct care with patient. Exam Data for Last 24 hours Vital signs and Labs for Last 24 Hours: Temp Pulse Resp BP Pulse Ox O2 Del Method 97.7 F 67 16 144/87 H 99 Room Air 07/04/24 04:00 07/04/24 04:00 07/04/24 04:00 07/04/24 04:00 07/04/24 04:00 07/04/24 06:25 Laboratory Results - last 24 hr 07/03/24 21:17: WBC 10.4, RBC 5.64, Hgb 16.5, Hct 48.4, MCV 85.8, MCH 29.3, MCHC 34.1, RDW 12.7, Plt Count 341, MPV 8.7, Neut % (Auto) 52.6, Lymph % (Auto) 34.7, [place] % (Auto) 10.8 H, Eos % (Auto) 1.4, Baso % (Auto) 0.2, Neut # (Auto) 5.4, Lymph # (Auto) 3.6, [place] # (Auto) 1.1 H, Eos # (Auto) 0.2, Baso # (Auto) 0.0, PT 10.6, INR 0.94, D-Dimer 0.67 H, Sodium 142, Potassium 3.9, Chloride 106, Carbon Dioxide 28, Anion Gap 11.9, BUN 17, Creatinine 1.00, Estimated Creat Clear 251, Estimated GFR 90, Est GFR ( Amer) 109, Glucose 98, Calcium 9.2, Total Bilirubin 0.5, AST 30, ALT 25, Alkaline Phosphatase 71, Troponin I < 0.01, C-Reactive Protein 2.3, NT-Pro-B Natriuret Pep < 20.0, Total Protein 7.5, Albumin 4.5, Globulin 3.0, Albumin/Globulin Ratio 1.5, Procalcitonin 0.049, HCV Ab KRYSTAL w/Rflx PCR Qn Negative, HIV Ag/Ab Combo Qual Negative 07/04/24 00:21: Troponin I < 0.01 07/04/24 02:52: Urine Color Yellow, Urine Appearance Clear, Urine pH 6.0, Ur Specific [place] >= 1.030, Urine Protein Negative, Urine Glucose (UA) Negative, Urine Ketones Trace, Urine Blood Negative, Urine Nitrate Negative, Urine Bilirubin Negative, Urine Urobilinogen 0.2, Ur Leukocyte Esterase Negative, Urine WBC Occasional, Ur Squamous Epith Cells Occasional, Urine Bacteria 1+, Urine Mucus 1+, Urine Opiates Screen Negative, Urine Methadone Screen Negative, Ur Barbituates Screen Negative, Ur Phencyclidine Scrn Negative, Ur Amphetamines Screen Negative, U Benzodiazepines Scrn Negative, Urine Cocaine Screen Negative, U Marijuana (THC) Screen Negative, Chlamy pneumoniae PCR Not detected, Adenovirus (PCR) Not detected, B. pertussis DNA (PCR) Not detected, Coronavirus OC43 (PCR) Not detected, Coronavirus HKU1 (PCR) Not detected, Coronavirus 229E (PCR) Not detected, SARS-CoV-2 (PCR) Not detected, Coronavirus NL63 (PCR) Not detected, Human Metapneumovir PCR Not detected, Influenza A (H1) PCR Not detected, Influ A (H1N1/09) PCR Not detected, Influenza A (H3) PCR Not detected, Influenza Type A (PCR) Not detected, Influenza Type B (PCR) Not detected, M. pneumoniae (PCR) Not detected, Parainfluenza 1 (PCR) Not detected, Parainfluenza 2 (PCR) Not detected, Parainfluenza 3 (PCR) Not detected, Parainfluenza 4 (PCR) Not detected, RSV (PCR) Not detected, Entero/Rhino (PCR) Not detected 07/04/24 03:09: Troponin I < 0.01 07/04/24 06:01: WBC 7.4 D, RBC 5.47, Hgb 16.0, Hct 47.6, MCV 87.0, MCH 29.3, MCHC 33.6, RDW 12.7, Plt Count 283, MPV 8.7, Neut % (Auto) 47.4, Lymph % (Auto) 39.8, [place] % (Auto) 10.6 H, Eos % (Auto) 2.0, Baso % (Auto) 0.1, Neut # (Auto) 3.5, Lymph # (Auto) 3.0, [place] # (Auto) 0.8, Eos # (Auto) 0.2, Baso # (Auto) 0.0, Sodium 142, Potassium 4.1, Chloride 109 H, Carbon Dioxide 25, Anion Gap 12.1, BUN 19, Creatinine 0.90, Estimated Creat Clear 275, Estimated GFR 102, Est GFR ( Amer) 123, Glucose 106 H, Calcium 9.6, Magnesium 2.3, Total Bilirubin 0.6, AST 29, ALT 23, Alkaline Phosphatase 68, Total Protein 6.9, Albumin 4.3, Globulin 2.6, Albumin/Globulin Ratio 1.7 I & O for Last 24 hours: Intake & Output 07/01/24 07/02/24 07/03/24 07/04/24 23:59 23:59 23:59 23:59 Output Total 0 / 0 Balance 0 / 0 Weight 159.619 kg 156.081 kg Constitutional Constitutional: no acute distress, obese and cooperative *Routine HEENT Exam Head: Present normocephalic Eye: Present EOMI and PERRL ENT: Present mucous membranes moist *Routine Neck Exam Neck: Present supple; Absent lymphadenopathy *Routine Respiratory Exam Respiratory: Present CTA bilaterally and wheezes; Absent rhonchi or crackles *Routine Cardiovascular Exam Cardiovascular: Present RRR *Routine Abdominal Exam Abdominal: Present soft and normoactive bowel sounds; Absent tenderness *Routine Rectal Exam Patient deferred: visual exam *Routine Exam Patient deferred: penile exam *Routine Extremities Exam Extremities: Absent cyanosis, clubbing or edema *Routine Skin Exam Skin: Present warm; Absent rash *Routine Neurological Exam Neurological: Present alert, oriented X3 and moving all extremities; Absent altered mental status Results Data Completed and Pending Labs on day of discharge: Labs from last 24 hours 07/04/24 07/04/24 07/04/24 06:01 03:09 02:52 WBC 7.4 D RBC 5.47 Hgb 16.0 Hct 47.6 MCV 87.0 MCH 29.3 MCHC 33.6 RDW 12.7 Plt Count 283 MPV 8.7 Neut % (Auto) 47.4 Lymph % (Auto) 39.8 [place] % (Auto) 10.6 H Eos % (Auto) 2.0 Baso % (Auto) 0.1 Neut # (Auto) 3.5 Lymph # (Auto) 3.0 [place] # (Auto) 0.8 Eos # (Auto) 0.2 Baso # (Auto) 0.0 PT INR D-Dimer Sodium 142 Potassium 4.1 Chloride 109 H Carbon Dioxide 25 Anion Gap 12.1 BUN 19 Creatinine 0.90 Estimated Creat Clear 275 Estimated GFR 102 Est GFR ( Amer) 123 Glucose 106 H Calcium 9.6 Magnesium 2.3 Total Bilirubin 0.6 AST 29 ALT 23 Alkaline Phosphatase 68 Troponin I < 0.01 C-Reactive Protein NT-Pro-B Natriuret Pep Total Protein 6.9 Albumin 4.3 Globulin 2.6 Albumin/Globulin Ratio 1.7 Procalcitonin Urine Color Yellow Urine Appearance Clear Urine pH 6.0 Ur Specific [place] >= 1.030 Urine Protein Negative Urine Glucose (UA) Negative Urine Ketones Trace Urine Blood Negative Urine Nitrate Negative Urine Bilirubin Negative Urine Urobilinogen 0.2 Ur Leukocyte Esterase Negative Urine WBC Occasional Ur Squamous Epith Cells Occasional Urine Bacteria 1+ Urine Mucus 1+ Urine Opiates Screen Negative Urine Methadone Screen Negative Ur Barbituates Screen Negative Ur Phencyclidine Scrn Negative Ur Amphetamines Screen Negative U Benzodiazepines Scrn Negative Urine Cocaine Screen Negative U Marijuana (THC) Screen Negative Chlamy pneumoniae PCR Not detected Adenovirus (PCR) Not detected B. pertussis DNA (PCR) Not detected Coronavirus OC43 (PCR) Not detected Coronavirus HKU1 (PCR) Not detected Coronavirus 229E (PCR) Not detected SARS-CoV-2 (PCR) Not detected Coronavirus NL63 (PCR) Not detected HCV Ab KRYSTAL w/Rflx PCR Qn HIV Ag/Ab Combo Qual Human Metapneumovir PCR Not detected Influenza A (H1) PCR Not detected Influ A (H1N1/09) PCR Not detected Influenza A (H3) PCR Not detected Influenza Type A (PCR) Not detected Influenza Type B (PCR) Not detected M. pneumoniae (PCR) Not detected Parainfluenza 1 (PCR) Not detected Parainfluenza 2 (PCR) Not detected Parainfluenza 3 (PCR) Not detected Parainfluenza 4 (PCR) Not detected RSV (PCR) Not detected Entero/Rhino (PCR) Not detected 07/04/24 07/03/24 00:21 21:17 WBC 10.4 RBC 5.64 Hgb 16.5 Hct 48.4 MCV 85.8 MCH 29.3 MCHC 34.1 RDW 12.7 Plt Count 341 MPV 8.7 Neut % (Auto) 52.6 Lymph % (Auto) 34.7 [place] % (Auto) 10.8 H Eos % (Auto) 1.4 Baso % (Auto) 0.2 Neut # (Auto) 5.4 Lymph # (Auto) 3.6 [place] # (Auto) 1.1 H Eos # (Auto) 0.2 Baso # (Auto) 0.0 PT 10.6 INR 0.94 D-Dimer 0.67 H Sodium 142 Potassium 3.9 Chloride 106 Carbon Dioxide 28 Anion Gap 11.9 BUN 17 Creatinine 1.00 Estimated Creat Clear 251 Estimated GFR 90 Est GFR ( Amer) 109 Glucose 98 Calcium 9.2 Magnesium Total Bilirubin 0.5 AST 30 ALT 25 Alkaline Phosphatase 71 Troponin I < 0.01 < 0.01 C-Reactive Protein 2.3 NT-Pro-B Natriuret Pep < 20.0 Total Protein 7.5 Albumin 4.5 Globulin 3.0 Albumin/Globulin Ratio 1.5 Procalcitonin 0.049 Urine Color Urine Appearance Urine pH Ur Specific [place] Urine Protein Urine Glucose (UA) Urine Ketones Urine Blood Urine Nitrate Urine Bilirubin Urine Urobilinogen Ur Leukocyte Esterase Urine WBC Ur Squamous Epith Cells Urine Bacteria Urine Mucus Urine Opiates Screen Urine Methadone Screen Ur Barbituates Screen Ur Phencyclidine Scrn Ur Amphetamines Screen U Benzodiazepines Scrn Urine Cocaine Screen U Marijuana (THC) Screen Chlamy pneumoniae PCR Adenovirus (PCR) B. pertussis DNA (PCR) Coronavirus OC43 (PCR) Coronavirus HKU1 (PCR) Coronavirus 229E (PCR) SARS-CoV-2 (PCR) Coronavirus NL63 (PCR) HCV Ab KRYSTAL w/Rflx PCR Qn Negative HIV Ag/Ab Combo Qual Negative Human Metapneumovir PCR Influenza A (H1) PCR Influ A (H1N1/09) PCR Influenza A (H3) PCR Influenza Type A (PCR) Influenza Type B (PCR) M. pneumoniae (PCR) Parainfluenza 1 (PCR) Parainfluenza 2 (PCR) Parainfluenza 3 (PCR) Parainfluenza 4 (PCR) RSV (PCR) Entero/Rhino (PCR) DS: Diagnosis Discharge Diagnosis (1) Chest pain: Status: Acute Code(s): R07.9 - Chest pain, unspecified Qualifiers: Chest pain type: other chest pain Qualified Code(s): R07.89 - Other chest pain (2) GERD (gastroesophageal reflux disease): Status: Acute Code(s): K21.9 - Gastro-esophageal reflux disease without esophagitis (3) Hyperlipidemia: Status: Acute Code(s): E78.5 - Hyperlipidemia, unspecified (4) HTN (hypertension): Status: Acute Code(s): I10 - Essential (primary) hypertension (5) Obesity: Status: Acute Code(s): E66.9 - Obesity, unspecified Meds Home Medications and Allergies Home Medications ?Medication ?Instructions ?Recorded ?Confirmed ?Type metoprolol succinate 50 mg 50 mg PO DAILY 06/26/24 07/04/24 History tablet,extended release 24 hr omeprazole 20 mg capsule,delayed 20 mg PO DAILY 06/26/24 07/03/24 History release atorvastatin 40 mg tablet 40 mg PO HS 30 days #30 tabs 07/04/24 Rx irbesartan 75 mg tablet 75 mg PO HS 30 days #30 tabs 07/04/24 Rx New Prescriptions to Start Prescriptions: atorvastatin Dino Avila irbesartan Dino Avila Allergies Allergy/AdvReac Type Severity Reaction Status Date / Time No Known Allergies Allergy Verified 06/26/24 11:04 Discharge Plan Disposition Patient Disposition: Home, Self-Care Condition: Good Follow up Plan Follow up with: Aylin Madrigal APRN [Nurse Practitioner] - 07/17/24 1:30 pm Malika Davison PA [Referring] - 07/10/24 11:00 am Prescriptions/Medication Reconciliation: New atorvastatin 40 mg Tablet 40 mg PO HS 30 Days Qty: 30 0RF irbesartan 75 mg Tablet 75 mg PO HS 30 Days Qty: 30 0RF Continued metoprolol succinate 50 mg tablet extended release 24 hr 50 mg PO DAILY omeprazole 20 mg capsule,delayed release(DR/EC) 20 mg PO DAILY Patient Comments: TAKE 1 CAPSULE BY MOUTH ONCE DAILY NEEDED Discontinued metoprolol succinate 50 mg tablet extended release 24 hr 25 mg PO HS Problem Reconciliation Problems Reviewed?: Yes Patient Discharge Instructions ACTIVITY: Continue current activity DIET: continue same diet Patient Instructions: DI for Chest Pain Print Language: Latvian Providers Primary Care Provider: Provider,Referral Admit Provider: Kaleb Clark Attending Provider: Kaleb Clark
[2024-07-04 08:00] VITALS: BP 161/84; PULSE 80; PULSE 84; RESP 17; TEMP 36.6; O2SAT 98
--- NOTE | 2024-07-04 09:02 | EXP.CARD.CON ---
History of Present Illness History of Present Illness Consult date: 07/04/24 Consult reason: chest pain Chief complaint: chest pain History of present illness: This is a 24-year-old white male with past medical history of gastroesophageal reflux disease, hypertension, hyperlipidemia and obesity who presented to emergency department with complaints of chest pain. Patient recently was evaluated in cardiology clinic for episodes of chest pain and is awaiting CCTA and echo on an outpatient basis. Reports yesterday symptoms became more intense prompting him to come to the ER. Patient reports episodes of midsternal chest pressure radiating to left arm and right side of neck intermittently for 3 weeks. Denies shortness of breath, palpitations or dizziness. On presentation to emergency department EKG shows sinus rhythm at a rate of 82 without acute ischemic changes noted. Labs as follow: WBC 10.4, hemoglobin 16.5 D-dimer positive at 0.67, sodium 142, potassium 3.9, creatinine 1, serial troponins negative and a proBNP less than 20. Chest x-ray is negative for acute findings. Patient was admitted for further evaluation per cardiology for chest pain and is awaiting echo and CCTA. This morning patient is resting comfortably in bed, denies symptoms. Family is at bedside [facility] Disclaimer: The information contained in this section may have been updated after the patient was seen, as this information can be updated by other users. Medical History (Updated 07/04/24 @ 02:14 by Kaleb Clark MD) Abnormal electrocardiogram [ECG] [EKG] HTN (hypertension) Family History (Updated 06/26/24 @ 11:10 by Katherine Sanchez) Grandfather Cancer Father Diabetes Heart attack Hypertension Mother Diabetes Hypertension Grandmother Hypertension Social History (Updated 06/26/24 @ 11:09 by Katherine Sanchez) Smoking Status: Never smoker alcohol intake: never substance use type: denies use current occupational status: employed Travel in the last 8 weeks?: Inside the [place] Review of Systems Review of Systems Review of systems:: pertinent systems reviewed and negative unless documented below Constitutional Constitutional: Reports system reviewed and no additional complaints, except as documented *Cardiovascular Cardiovascular: Reports chest pain *Respiratory Respiratory: Reports system reviewed and no additional complaints, except as documented *Gastrointestinal Gastrointestinal: Reports system reviewed and no additional complaints, except as documented *Neurologic Neurologic: Reports system reviewed and no additional complaints, except as documented and Denies confusion Psychiatric Psychiatric: Reports system reviewed and no additional complaints, except as documented and Denies confusion Exam Data for Last 24 hours Vital signs and Labs for Last 24 Hours: Temp Pulse Resp BP Pulse Ox O2 Del Method 97.8 F 84 17 161/84 H 98 Room Air 07/04/24 08:00 07/04/24 08:00 07/04/24 08:00 07/04/24 08:00 07/04/24 08:00 07/04/24 08:22 Laboratory Results - last 24 hr 07/03/24 21:17: WBC 10.4, RBC 5.64, Hgb 16.5, Hct 48.4, MCV 85.8, MCH 29.3, MCHC 34.1, RDW 12.7, Plt Count 341, MPV 8.7, Neut % (Auto) 52.6, Lymph % (Auto) 34.7, [place] % (Auto) 10.8 H, Eos % (Auto) 1.4, Baso % (Auto) 0.2, Neut # (Auto) 5.4, Lymph # (Auto) 3.6, [place] # (Auto) 1.1 H, Eos # (Auto) 0.2, Baso # (Auto) 0.0, PT 10.6, INR 0.94, D-Dimer 0.67 H, Sodium 142, Potassium 3.9, Chloride 106, Carbon Dioxide 28, Anion Gap 11.9, BUN 17, Creatinine 1.00, Estimated Creat Clear 251, Estimated GFR 90, Est GFR ( Amer) 109, Glucose 98, Calcium 9.2, Total Bilirubin 0.5, AST 30, ALT 25, Alkaline Phosphatase 71, Troponin I < 0.01, C-Reactive Protein 2.3, NT-Pro-B Natriuret Pep < 20.0, Total Protein 7.5, Albumin 4.5, Globulin 3.0, Albumin/Globulin Ratio 1.5, Procalcitonin 0.049, HCV Ab KRYSTAL w/Rflx PCR Qn Negative, HIV Ag/Ab Combo Qual Negative 07/04/24 00:21: Troponin I < 0.01 07/04/24 02:52: Urine Color Yellow, Urine Appearance Clear, Urine pH 6.0, Ur Specific [place] >= 1.030, Urine Protein Negative, Urine Glucose (UA) Negative, Urine Ketones Trace, Urine Blood Negative, Urine Nitrate Negative, Urine Bilirubin Negative, Urine Urobilinogen 0.2, Ur Leukocyte Esterase Negative, Urine WBC Occasional, Ur Squamous Epith Cells Occasional, Urine Bacteria 1+, Urine Mucus 1+, Urine Opiates Screen Negative, Urine Methadone Screen Negative, Ur Barbituates Screen Negative, Ur Phencyclidine Scrn Negative, Ur Amphetamines Screen Negative, U Benzodiazepines Scrn Negative, Urine Cocaine Screen Negative, U Marijuana (THC) Screen Negative, Chlamy pneumoniae PCR Not detected, Adenovirus (PCR) Not detected, B. pertussis DNA (PCR) Not detected, Coronavirus OC43 (PCR) Not detected, Coronavirus HKU1 (PCR) Not detected, Coronavirus 229E (PCR) Not detected, SARS-CoV-2 (PCR) Not detected, Coronavirus NL63 (PCR) Not detected, Human Metapneumovir PCR Not detected, Influenza A (H1) PCR Not detected, Influ A (H1N1/09) PCR Not detected, Influenza A (H3) PCR Not detected, Influenza Type A (PCR) Not detected, Influenza Type B (PCR) Not detected, M. pneumoniae (PCR) Not detected, Parainfluenza 1 (PCR) Not detected, Parainfluenza 2 (PCR) Not detected, Parainfluenza 3 (PCR) Not detected, Parainfluenza 4 (PCR) Not detected, RSV (PCR) Not detected, Entero/Rhino (PCR) Not detected 07/04/24 03:09: Troponin I < 0.01 07/04/24 06:01: WBC 7.4 D, RBC 5.47, Hgb 16.0, Hct 47.6, MCV 87.0, MCH 29.3, MCHC 33.6, RDW 12.7, Plt Count 283, MPV 8.7, Neut % (Auto) 47.4, Lymph % (Auto) 39.8, [place] % (Auto) 10.6 H, Eos % (Auto) 2.0, Baso % (Auto) 0.1, Neut # (Auto) 3.5, Lymph # (Auto) 3.0, [place] # (Auto) 0.8, Eos # (Auto) 0.2, Baso # (Auto) 0.0, Sodium 142, Potassium 4.1, Chloride 109 H, Carbon Dioxide 25, Anion Gap 12.1, BUN 19, Creatinine 0.90, Estimated Creat Clear 275, Estimated GFR 102, Est GFR ( Amer) 123, Glucose 106 H, Calcium 9.6, Magnesium 2.3, Total Bilirubin 0.6, AST 29, ALT 23, Alkaline Phosphatase 68, Total Protein 6.9, Albumin 4.3, Globulin 2.6, Albumin/Globulin Ratio 1.7 I & O for Last 24 hours: Intake & Output 07/01/24 07/02/24 07/03/24 07/04/24 23:59 23:59 23:59 23:59 Intake Total 345 / 345 Output Total 0 / 0 Balance 345 / 345 Weight 351 lb 14.4 oz 344 lb 1.6 oz Constitutional Constitutional: no acute distress *Routine Respiratory Exam Respiratory: Present CTA bilaterally and symmetric chest movement *Routine Cardiovascular Exam Cardiovascular: Present RRR, Normal S1 and Normal S2 *Routine Abdominal Exam Abdominal: Present soft and normoactive bowel sounds; Absent tenderness *Routine Extremities Exam Extremities: Present full ROM and normal capillary refill; Absent edema *Routine Skin Exam Skin: Present intact, dry and warm Detailed Neck Exam: Thyroids Thyroid: Absent bruit Meds Home Medications and Allergies Home Medications ?Medication ?Instructions ?Recorded ?Confirmed ?Type metoprolol succinate 50 mg 50 mg PO DAILY 06/26/24 07/04/24 History tablet,extended release 24 hr omeprazole 20 mg capsule,delayed 20 mg PO DAILY 06/26/24 07/03/24 History release metoprolol succinate 50 mg 25 mg PO HS 07/04/24 07/04/24 History tablet,extended release 24 hr New Prescriptions to Start Prescriptions: Allergies Allergy/AdvReac Type Severity Reaction Status Date / Time No Known Allergies Allergy Verified 06/26/24 11:04 Assessment and Plan *Assessment and plan (1) Chest pain: Status: Acute Qualifiers: Chest pain type: other chest pain Qualified Code(s): R07.89 - Other chest pain Category: Medical Code(s): R07.9 - Chest pain, unspecified Plan Chest pain Hypertension Hyperlipidemia Patient complains of intermittent chest pain x 3 weeks Serial troponins negative D-dimer is positive-cannot rule out PE however suspicion is low. Echocardiogram normal biventricular systolic function with no significant valvular stenosis or regurg CCTA normal LDL goal less than 100, LDL is 145-start Lipitor 40 mg p.o. daily Hypertension present-continue metoprolol 50 mg p.o. daily and irbesartan 75 mg p.o. daily for hypertension CV summary: CCTA and echo unremarkable. Cardiology will sign off. Please continue below listed medications that have patient follow-up in cardiology clinic on Wednesday or Wednesday for reevaluation. Patient needs in-home sleep study. Cardiac meds: Lipitor 40 mg p.o. daily Metoprolol succinate 50 mg p.o. daily Irbesartan 75 mg p.o. daily
[2024-07-04] MEDS: IVABRADINE HCL 7.5MG TABLET *IVABRADINE+METOPROLOL REGIMINE 15 MG PO (09:19)
[2024-07-04] MEDS: METOPROLOL TARTRATE 25MG TABLET *IVABRADINE+METOPROLOL REGIMINE 25 MG PO ×2 (09:22→10:23)
--- NOTE | 2024-07-04 10:24 | PC.NURSE ---
HR between 61-64.
[2024-07-04] MEDS: METOPROLOL TARTRATE 5MG/5ML VIAL *IVABRADINE+METOPROLOL REGIMINE 5 MG IV ×5 (11:46→12:42)
--- NOTE | 2024-07-04 11:50 | PC.NURSE ---
HR 61-70 IV metoprolol 5 mg given.
[2024-07-04 12:00] VITALS: BP 131/77; PULSE 60; PULSE 61; RESP 17; TEMP 36.8; O2SAT 96
[2024-07-04] MEDS: NITROGLYCERIN 0.4MG SL TABLET 0.8 MG SL (12:43)
[2024-07-04] MEDS: IOPAMIDOL-370 (76%);100ML BOTTLE 90 ML IV (12:59)
[2024-07-04] MEDS: 0.9 % SODIUM CHLORIDE 50 ML VIAL IV (12:59)
[2024-07-04] MEDS: SODIUM CHLORIDE 0.9% 10ML SYR (RAD ONLY) 10 ML IV (12:59)
--- NOTE | 2024-07-06 11:28 | SW/DCPLANNER ---
Spoke with patient on the phone. Patient stated that he is feeling pretty good. Patient stated that he is aware of his upcoming appointments. Patient stated that was able to get his medicine picked up. Patient stated that he has no concerns or questions at this time. Jose Smith
== END 2024-07-04 14:52 | disposition home or self-care (01) ==
LOC: ER 21:58 → 2ND 22:40
PROVIDERS: Physician Assistant; Admitting Provider Student in an Organized Health Care Education/Training Program; Emergency Provider Student in an Organized Health Care Education/Training Program; Visit Provider Student in an Organized Health Care Education/Training Program
DX: R07.89 Other chest pain (principal); E66.813 Obesity, class 3; I10 Essential (primary) hypertension; E78.5 Hyperlipidemia, unspecified; K21.9 Gastro-esophageal reflux disease without esophagitis; Z79.899 Other long term (current) drug therapy
CPT/HCPCS: 36415; 71046; 75574; 80053; 80307; 81001; 83735; 83880; 84145; 84484; 85025; 85378; 85610; 86140; 86803; 87389; 87633; 93005; 93306; 99285; G0378; J1885; J2405; Q9967

== ENCOUNTER 2024-07-17 14:25 | Outpatient (CLI) | payer OTHER, SELFPAY ==
--- NOTE | 2024-07-17 14:27 | XR_ITS ---
FINAL REPORT CLINICAL HISTORY: Left shoulder pain COMPARISON: None FINDINGS: LEFT SHOULDER Three views of the left shoulder were obtained. There is no acute fracture or dislocation. Visualized joint spaces are normally aligned. Soft tissues are unremarkable. IMPRESSION: No acute bony abnormality. Reviewed, Interpreted and Dictated by Dipak Martinez MD Transcribed by Gaye Joseph Authenticated and . [facility]
--- NOTE | 2024-07-17 14:27 | XR_ITS ---
FINAL REPORT CLINICAL HISTORY: c/o neck pain, states mainly on left side COMPARISON: None FINDINGS: 3 views of the cervical spine were obtained. There is no acute fracture. There is no malalignment. The vertebrae are normal in height. The disc spaces are preserved. IMPRESSION: No acute process. Reviewed, Interpreted and Dictated by Dipak Martinez MD Transcribed by Gaye Joseph Authenticated and [facility]
== END 2024-07-17 23:59 | disposition home or self-care (01) ==
LOC: RAD 14:25
PROVIDERS: PCP Physician Assistant Medical; Visit Provider Nurse Practitioner
DX: M25.512 Pain in left shoulder (principal); M54.2 Cervicalgia
CPT/HCPCS: 72040; 73030

== ENCOUNTER → 2024-08-04 13:44 | Outpatient (CLI) | payer OTHER, SELFPAY | LOC: SL 08-07 13:44 | PROVIDERS: PCP Internal Medicine; Visit Provider Internal Medicine | DX: G47.33 Obstructive sleep apnea (adult) (pediatric) (principal); R55 Syncope and collapse; R94.31 Abnormal electrocardiogram [ECG] [EKG] | CPT/HCPCS: G0399 ==